=== PATIENT | male | born 1975 | race Caucasian/White ===

== ENCOUNTER 2017-12-19 00:58 | Emergency (ER) | payer OTHER ==
[~2017-12-19] VITALS: Ht 180.3 cm; Wt 81.1 kg
[2017-12-19 01:41] LABS: HEMATOCRIT 38.2 % (38.0-50.0); HEMOGLOBIN 13.3 G/DL (12.5-16.6); MCH 29.9 PG (29.0-34.0); MCHC 34.8 G/DL (30.0-36.0); MCV 85.8 FL (86-99); PLATELET COUNT 177 K/uL (156-360); RBC DIS.WIDTH-CV 12.2 % (11.8-14.6); RBC DIS.WIDTH-SD 38.2 % (39-53); RED BLOOD COUNT 4.45 M/uL (4.00-5.50); WHITE BLOOD COUNT 12.2 K/uL (4.1-10.2)
[2017-12-19 01:50] LABS: ALBUMIN 4.3 g/dL (3.2-4.8); CHLORIDE 96 mEq/L (99-109); POTASSIUM 4.3 mEq/L (3.7-5.4); SODIUM 130 mEq/L (136-147)
[2017-12-19 01:52] LABS: GLUCOSE 132 mg/dL (70-99); TOTAL PROTEIN 6.8 g/dL (6.4-8.3)
[2017-12-19 01:53] LABS: APPEARANCE CLEAR ((CLEAR)); BILIRUBIN NEGATIVE; BLOOD SMALL; COLOR YELLOW ((YELLOW)); GLUCOSE (STRIP) NEGATIVE; KETONES NEGATIVE; LEUKOCYTES TRACE; NITRITE NEGATIVE; PROTEIN (STRIP) NEGATIVE; SPECIFIC GRAVITY 1.011 (1.000-1.030); UROBILINOGEN 0.2 MG/DL (0.2-1.0)
[2017-12-19 01:54] LABS: TOTAL BILIRUBIN 1.1 mg/dL (0.0-1.0)
[2017-12-19 01:56] LABS: ALKALINE PHOSPHATASE 81 IU/L (3-129)
[2017-12-19 01:57] LABS: BACTERIA RARE /HPF; EPITHELIAL CELLS RARE /HPF; MUCUS TRACE /LPF; RED BLOOD CELLS 15-20 /HPF (0-5); UCUL ADDED? YES; WHITE BLOOD CELLS 15-20 /HPF (0-5)
[2017-12-19 01:57] LABS: UREA NITROGEN (BUN) 9 mg/dL (9-23)
[2017-12-19 01:58] LABS: AST (GOT) 19 IU/L (2-34)
[2017-12-19 01:59] LABS: ALT (GPT) 21 IU/L (3-49); LIPASE 7 U/L (1.0-51.0)
[2017-12-19 02:03] LABS: GFR ESTIMATE (CALCULATED) > 59 mL/min/ (58.99-99999)
[2017-12-19 02:05] LABS: INTER. NORMALIZED RATIO 1.1
[2017-12-19 02:08] LABS: PTT 30.7 SEC (25-37)
[2017-12-19 02:22] LABS: SOURCE URINE
[2017-12-19] MEDS ORDERED: KEFLEX500 MG PO (02:55)
[2017-12-19 03:44] VITALS: BP 114/69
[2017-12-19 03:56] LABS: AMPHETAMINE PRESUMPTIVE POSITIVE (500 ng/mL); BARBITURATES NEGATIVE (200 ng/mL); BENZODIAZEPINES NEGATIVE (150 ng/mL); BUPRENORPHINE NEGATIVE (10 ng/mL); COCAINE NEGATIVE (150 ng/mL); METHADONE NEGATIVE (200 ng/mL); METHAMPHETAMINE PRESUMPTIVE POSITIVE (500 ng/mL); OPIATES (MORPHINE) PRESUMPTIVE POSITIVE (100 ng/mL); OXYCODONE NEGATIVE (100 ng/mL); PHENCYCLIDINE NEGATIVE (25 ng/mL); PROPOXYPHENE NEGATIVE (300 ng/mL); THC CANNABINOIDS NEGATIVE (50 ng/mL); TRICYCLIC ANTIDEPRESSANTS NEGATIVE (300 ng/mL)
[2017-12-21 11:43] LABS: CHLAMYDIA TRACHOMATIS NEGATIVE; NEISSERIA GONORRHOEAE NEGATIVE
== END 2017-12-19 03:46 | disposition home or self-care (01) ==
LOC: EME 00:58
PROVIDERS: Emergency Medicine
DX: N30.01 Acute cystitis with hematuria (principal); R65.10 Systemic inflammatory response syndrome (SIRS) of non-infectious origin without acute organ dysfunction; E87.1 Hypo-osmolality and hyponatremia; R91.8 Other nonspecific abnormal finding of lung field; B19.20 Unspecified viral hepatitis C without hepatic coma; F17.200 Nicotine dependence, unspecified, uncomplicated
CPT/HCPCS: 74176; 80053; 81003; 83605; 83690; 84999; 85027; 85610; 85730; 87040; 87086; 87491; 87591; 87801; 99281; 99284; J0696; J1885; J2405; J7030

== ENCOUNTER 2017-12-24 02:54 | Emergency (ER) | payer OTHER ==
[~2017-12-24] VITALS: Ht 180.3 cm; Wt 82.6 kg
[~2017-12-24 02:54] MED LIST: KEFLEX500 MG PO
[2017-12-24 03:34] VITALS: BP 128/81
== END 2017-12-24 03:37 | disposition home or self-care (01) ==
LOC: EME 02:54
DX: Z00.00 Encounter for general adult medical examination without abnormal findings (principal); Z87.440 Personal history of urinary (tract) infections; B19.20 Unspecified viral hepatitis C without hepatic coma; F17.200 Nicotine dependence, unspecified, uncomplicated
CPT/HCPCS: 99281; 99283